=== PATIENT | male | born 1990 | race Caucasian/White ===

== ENCOUNTER 2017-09-04 20:11 | Emergency (ER) | payer SELFPAY ==
[~2017-09-04] VITALS: Ht 185.4 cm; Wt 81.6 kg
--- NOTE | 2017-09-04 22:05 | NUR ---
[id number], in no distress, c/o left foot swelling , pain and deformity s/p slip and fall while playing tennis, denies hitting head, no other medical complains, +cms noted to lower ext. awaitng for md terry
--- NOTE | 2017-09-04 23:46 | NUR ---
pt left foot splinted as ordered,+cms, pt rebeca well, pt taught on how to use crutches with + return demonstration, pt instructed to f/u with pmd or return to er for worsening of symptoms,verbalizes undersrtanding, rx given to pt
== END 2017-09-04 23:50 | disposition home or self-care (01) ==
LOC: ER 20:14
DX: S92.355A Nondisplaced fracture of fifth metatarsal bone, left foot, initial encounter for closed fracture (principal); X58.XXXA Exposure to other specified factors, initial encounter; Y93.73 Activity, racquet and hand sports; Y92.89 Other specified places as the place of occurrence of the external cause; Y99.8 Other external cause status
CPT/HCPCS: 73630; A4663